=== PATIENT | male | born 1985 | race Caucasian/White ===

== ENCOUNTER 2022-10-16 22:51 | Emergency (ER) | payer OTHER ==
[~2022-10-16] VITALS: Ht 167.6 cm; Wt 77.1 kg
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
[2022-10-17] MEDS ORDERED: IV NS 0.9% 1,000 ML IV ONE
[2022-10-17] MEDS ORDERED: MORPHINE SULFATE INJ 2 MG/ML DISP.SYRIN IV ONE
[2022-10-17] MEDS ORDERED: MORPHINE SULFATE INJ 2 MG/ML DISP.SYRIN ONE (00:13)
[2022-10-17] MEDS ORDERED: IOHEXOL-300 100 ML VIAL IV ONE (00:21)
[2022-10-17] MEDS ORDERED: CT SWABBABLE VALVE TRANS SET 1 EA INFUS.SET MC ONE (00:21)
[2022-10-17] MEDS ORDERED: IV NS 0.9% 250 ML IV ONE (00:22)
--- NOTE | 2022-10-17 01:02 | NUR ---
patient to CT via stretcher
[2022-10-17 04:24] VITALS: BP 152/101
--- NOTE | 2022-10-17 04:24 | NUR ---
pt ok to discharge per dr benton. Patient discharged to home in stable condition. Written and verbal after care instructions given. Patient verbalizes understanding of instruction.Patient is awake and alert to self, day, and place. pt ambulatory with a steady gait
== END 2022-10-17 04:25 | disposition home or self-care (01) ==
LOC: ER 22:54
DX: S89.92XA Unspecified injury of left lower leg, initial encounter (principal); S89.91XA Unspecified injury of right lower leg, initial encounter; S49.91XA Unspecified injury of right shoulder and upper arm, initial encounter; Z88.8 Allergy status to other drugs, medicaments and biological substances; V23.49XA Other motorcycle driver injured in collision with car, pick-up truck or van in traffic accident, initial encounter; Y93.89 Activity, other specified; Y92.89 Other specified places as the place of occurrence of the external cause; Y99.8 Other external cause status
CPT/HCPCS: 99285; 72125; 73560 ×2; 73030; 73590; 71260; 70450; 70486; 74177; 96374; 96361; J7030; J7050; J2270; Q9967